=== PATIENT | male | born 1950 | race African-American/Black ===

== ENCOUNTER 2017-10-06 10:20 | Emergency (ER) | payer MEDICARE, MEDICAID ==
[2017-10-06] MEDS: SOD CHLORIDE 0.9% 1,000 ML IV (13:21)
[2017-10-06] MEDS: morphine 4 MG/ML VIAL IV (13:22)
[2017-10-06] MEDS: FAMOTIDINE 20 MG INJ IV (13:22)
[2017-10-06] MEDS: ONDANSETRON 4 MG INJ IV (13:22)
[2017-10-06 13:25] LABS: ADD MAN DIFF? NO
[2017-10-06 13:32] LABS: ABNORMAL IP MESSAGE 1; ADD UMIC YES; BASOPHILS % 0.6 % (0.0-2.0); EOSINOPHILS % 0.8 % (0.0-7.0); HEMATOCRIT 41.5 % (42.0-52.0); HEMOGLOBIN 12.9 g/dl (14.0-18.0); LYMPHOCYTES # 0.6 10^3/ul (0.8-2.9); MEAN CORPUSCULAR HEMOGLOBIN 28.5 pg (29.0-33.0); MEAN CORPUSCULAR HGB CONC 31.1 g/dl (32.0-37.0); MEAN CORPUSCULAR VOLUME 91.6 fl (82.0-101.0); MEAN PLATELET VOLUME 9.6 fl (7.4-10.4); MONOCYTE # 0.4 10^3/ul (0.3-0.9); MONOCYTES % 9.2 % (0.0-11.0); NEUTROPHIL # 3.7 10^3/ul (1.6-7.5); PLATELET COUNT 221 10^3/UL (140-415); POSITIVE DIFF @See below; RED BLOOD COUNT 4.53 10^6/ul (4.70-6.10); RED CELL DISTRIBUTION WIDTH 14.6 % (11.5-14.5); UR ASCORBIC ACID NEGATIVE (NEGATIVE); UR BACTERIA FEW /HPF (NONE SEEN); UR BILIRUBIN (Dip) NEGATIVE (NEGATIVE); UR BLOOD (Dip) 1+ mg/dL (NEGATIVE); UR CLARITY SLIGHTLY CLOUDY (CLEAR); UR COLOR YELLOW (YELLOW); UR GLUCOSE (Dip) NEGATIVE (NEGATIVE); UR KETONES (Dip) NEGATIVE (NEGATIVE); UR LEUKOCYTE ESTERASE (Dip) 2+ Leu/ul (NEGATIVE); UR NITRITE (Dip) POSITIVE (NEGATIVE); UR RBC 0 /HPF (0-5); UR SPECIFIC GRAVITY (Dip) 1.021 (1.003-1.030); UR TOTAL PROTEIN (Dip) 1+ mg/dl (NEGATIVE); UR UROBILINOGEN (Dip) NEGATIVE (NEGATIVE); UR WBC 72 /HPF (0-5)
[2017-10-06 13:32] LABS: WHITE BLOOD COUNT 4.8 10^3/ul (4.8-10.8)
[2017-10-06 13:47] LABS: ALANINE AMINOTRANSFERASE 233 IU/L (13-69); ALBUMIN 4.1 g/dl (3.3-4.9); ALBUMIN/GLOBULIN RATIO 1.13; ALKALINE PHOSPHATASE 95 IU/L (42-121); ANION GAP 18 (8-16); ASPARTATE AMINO TRANSFERASE 262 IU/L (15-46); BLOOD UREA NITROGEN 17 mg/dl (7-20); CALCIUM 9.2 mg/dl (8.4-10.2); CARBON DIOXIDE 26 mmol/L (21-31); CHLORIDE 105 mmol/L (97-110); GLUCOSE 98 mg/dl (70-220); LIPASE 191 U/L (23-300); POTASSIUM 3.9 mmol/L (3.5-5.1); SODIUM 145 mmol/L (135-144); TOTAL PROTEIN 7.7 g/dl (6.1-8.1)
[2017-10-06 14:08] LABS: TROPONIN-I < 0.012 ng/ml (0.00-0.12)
== END 2017-10-06 17:15 | disposition home or self-care (01) ==
LOC: E/R 10:20
DX: N39.0 Urinary tract infection, site not specified (principal); R00.1 Bradycardia, unspecified; R74.0 Nonspecific elevation of levels of transaminase and lactic acid dehydrogenase [LDH]; R51 Headache; J44.9 Chronic obstructive pulmonary disease, unspecified; I10 Essential (primary) hypertension; F14.10 Cocaine abuse, uncomplicated; Z87.891 Personal history of nicotine dependence
CPT/HCPCS: 36415; 70450; 74176; 80053; 81001; 83690; 84484; 85025; 87086; 93005; 96374; 96375; 99285-25

== ENCOUNTER 2017-10-18 00:40 | Emergency (ER) | payer SELFPAY, MEDICARE | END 2017-10-18 03:23 | disposition left against medical advice (07) | LOC: FTE 00:40 | DX: Z53.21 Procedure and treatment not carried out due to patient leaving prior to being seen by health care provider (principal) ==

== ENCOUNTER 2017-11-13 03:37 | Emergency (ER) | payer MEDICARE ==
[2017-11-13] MEDS: ALBUTEROL 0.083% (NEB) 2.5 MG/3 ML AMP INH (04:31)
== END 2017-11-13 05:05 | disposition home or self-care (01) ==
LOC: E/R 03:37
DX: J45.901 Unspecified asthma with (acute) exacerbation (principal); J44.9 Chronic obstructive pulmonary disease, unspecified; F17.210 Nicotine dependence, cigarettes, uncomplicated
CPT/HCPCS: 94664; 99283-25

== ENCOUNTER 2017-11-26 14:18 | Emergency (ER) | payer MEDICARE ==
[2017-11-26] MEDS: IPRATROPIUM (NEB) 0.5 MG/2.5 ML AMP HHN (15:23)
[2017-11-26] MEDS: LEVALBUTEROL (NEB) 1.25 MG/0.5 ML AMP HHN (15:23)
== END 2017-11-26 16:02 | disposition home or self-care (01) ==
LOC: FTE 14:18
DX: J45.901 Unspecified asthma with (acute) exacerbation (principal); J44.9 Chronic obstructive pulmonary disease, unspecified; Z87.891 Personal history of nicotine dependence
CPT/HCPCS: 71045; 94664; 99283-25

== ENCOUNTER 2017-12-03 01:07 | Emergency (ER) | payer MEDICARE ==
[2017-12-03 01:20] LABS: WHITE BLOOD COUNT 8.5 10^3/ul (4.8-10.8)
[2017-12-03 01:20] LABS: HEMATOCRIT 28.3 % (42.0-52.0); HEMOGLOBIN 8.7 g/dl (14.0-18.0); MEAN CORPUSCULAR HEMOGLOBIN 27.6 pg (29.0-33.0); MEAN CORPUSCULAR HGB CONC 30.7 g/dl (32.0-37.0); MEAN CORPUSCULAR VOLUME 89.8 fl (82.0-101.0); NUCLEATED RED BLOOD CELLS% 0.4 /100WBC (0.0-0.0); PLATELET COUNT 167 10^3/UL (140-415); POSITIVE DIFF @See below; RED BLOOD COUNT 3.15 10^6/ul (4.70-6.10); RED CELL DISTRIBUTION WIDTH 18.5 % (11.5-14.5)
[2017-12-03] MEDS: IPRATROPIUM (NEB) 0.5 MG/2.5 ML AMP INH (01:26)
[2017-12-03] MEDS: ALBUTEROL 0.5% (NEB) 2.5 MG/0.5 ML AMP INH (01:26)
[2017-12-03 01:30] LABS: ADD MAN DIFF? YES
[2017-12-03 01:41] LABS: ALANINE AMINOTRANSFERASE 39 IU/L (13-69); ALBUMIN 3.7 g/dl (3.3-4.9); ALBUMIN/GLOBULIN RATIO 1.37; ALKALINE PHOSPHATASE 85 IU/L (42-121); ANION GAP 12 (8-16); ASPARTATE AMINO TRANSFERASE 37 IU/L (15-46); BILIRUBIN,INDIRECT 0.3 mg/dl (0-1.1); BILIRUBIN,TOTAL 0.3 mg/dl (0.2-1.3); BLOOD UREA NITROGEN 12 mg/dl (7-20); CALCIUM 8.8 mg/dl (8.4-10.2); CARBON DIOXIDE 32 mmol/L (21-31); CHLORIDE 104 mmol/L (97-110); CREATININE 0.97 mg/dl (0.61-1.24); GLUCOSE 97 mg/dl (70-220); LIPASE 216 U/L (23-300); POTASSIUM 3.9 mmol/L (3.5-5.1); SODIUM 144 mmol/L (135-144); TOTAL PROTEIN 6.4 g/dl (6.1-8.1)
[2017-12-03] MEDS: METHYLPREDNISOLONE 125 MG INJ IV (01:42)
[2017-12-03 01:52] LABS: B-TYPE NATRIURETIC PEPTIDE 170 PG/ML (0-125)
[2017-12-03 01:59] LABS: TROPONIN-I < 0.012 ng/ml (0.000-0.120)
[2017-12-03] MEDS ORDERED: NITROGLYCERIN (SL) 0.4 MG TAB SL (02:00)
[2017-12-03] MEDS ORDERED: ACETAMINOPHEN 325 MG TAB PO (02:00)
[2017-12-03] MEDS ORDERED: DOCUSATE SODIUM 100 MG CAP PO (02:00)
[2017-12-03] MEDS ORDERED: NACL 0.9% 3 ML SYG IV (02:00)
[2017-12-03] MEDS ORDERED: ONDANSETRON 4 MG INJ IV (02:00)
[2017-12-03] MEDS ORDERED: BISACODYL (EC) 5 MG TAB PO (02:00)
[2017-12-03] MEDS ORDERED: ALBUTEROL 0.083% (NEB) 2.5 MG/3 ML AMP HHN (02:00)
[2017-12-03 02:20] LABS: ANISOCYTOSIS 2+ (0-0); BASOPHILS % (M) 1 % (0-2); EOSINOPHILS % (M) 5 % (0-7); ERYTHROBLAST% (NRBC) (M) 4 % (0-0); GIANT THROMBO% (M) 1 % (0-0); HYPOCHROMASIA 2+ (0-0); LYMPHOCYTES #M 2.6 10^3/ul (0.8-2.9); LYMPHOCYTES % (M) 31 % (15-51); MONOCYTE #M 0.5 10^3/ul (0.3-0.9); MONOCYTES % (M) 7 % (0-11); PLATELET ESTIMATE NORMAL; POLYCHROMASIA 3+ (0-0); SEGMENTED NEUTROPHILS (M) % 56 % (39-77); SMUDGE%M 7 % (0-0)
[2017-12-03] MEDS ORDERED: ALBUTEROL/IPRATROPIUM (NEB) 3 ML AMP HHN (05:00)
[2017-12-03] MEDS ORDERED: PANTOPRAZOLE (EC) 40 MG TAB PO (06:00)
[2017-12-03] MEDS ORDERED: predniSONE 20 MG TAB PO (09:00)
== END 2017-12-03 03:55 | disposition left against medical advice (07) ==
LOC: E/R 01:07
DX: J45.41 Moderate persistent asthma with (acute) exacerbation (principal); D64.9 Anemia, unspecified; R60.0 Localized edema; J44.9 Chronic obstructive pulmonary disease, unspecified; F17.210 Nicotine dependence, cigarettes, uncomplicated; I10 Essential (primary) hypertension
CPT/HCPCS: 36415; 71045; 80053; 83690; 83880; 84484; 85025; 93005; 94644; 96374; 99285-25

== ENCOUNTER 2018-03-12 01:05 | Inpatient (IN) | payer MEDICARE ==
[2018-03-12] MEDS ORDERED: LORAZEPAM 2 MG INJ (01:12)
[2018-03-12 01:14] LABS: ADD MAN DIFF? NO
[2018-03-12 01:16] LABS: BASOPHILS % 0.4 % (0.0-2.0); EOSINOPHILS # 0.5 10^3/ul (0.0-0.5); HEMOGLOBIN 11.4 g/dl (14.0-18.0); LYMPHOCYTES # 3.7 10^3/ul (0.8-2.9); MEAN CORPUSCULAR HEMOGLOBIN 23.9 pg (29.0-33.0); MEAN CORPUSCULAR HGB CONC 29.2 g/dl (32.0-37.0); MEAN CORPUSCULAR VOLUME 81.8 fl (82.0-101.0); MEAN PLATELET VOLUME 8.7 fl (7.4-10.4); MONOCYTE # 1.1 10^3/ul (0.3-0.9); MONOCYTES % 11.9 % (0.0-11.0); NEUTROPHIL # 4.1 10^3/ul (1.6-7.5); NEUTROPHILS % 43.5 % (39.0-77.0); PLATELET COUNT 244 10^3/UL (140-415); RED BLOOD COUNT 4.77 10^6/ul (4.70-6.10); RED CELL DISTRIBUTION WIDTH 20.1 % (11.5-14.5)
[2018-03-12 01:16] LABS: WHITE BLOOD COUNT 9.5 10^3/ul (4.8-10.8)
[2018-03-12] MEDS: ALBUTEROL 0.5% (NEB) 2.5 MG/0.5 ML AMP INH (01:31)
[2018-03-12] MEDS: IPRATROPIUM (NEB) 0.5 MG/2.5 ML AMP INH (01:31)
[2018-03-12 01:33] LABS: ALANINE AMINOTRANSFERASE 20 IU/L (13-69); ALBUMIN 3.8 g/dl (3.3-4.9); ALKALINE PHOSPHATASE 90 IU/L (42-121); ANION GAP 13 (8-16); ASPARTATE AMINO TRANSFERASE 40 IU/L (15-46); BILIRUBIN,INDIRECT 0.7 mg/dl (0-1.1); BILIRUBIN,TOTAL 0.7 mg/dl (0.2-1.3); BLOOD UREA NITROGEN 8 mg/dl (7-20); CALCIUM 9.1 mg/dl (8.4-10.2); CARBON DIOXIDE 29 mmol/L (21-31); CHLORIDE 106 mmol/L (97-110); CREATININE 1.04 mg/dl (0.61-1.24); GLUCOSE 120 mg/dl (70-220); POTASSIUM 4.1 mmol/L (3.5-5.1); SODIUM 144 mmol/L (135-144); TOTAL PROTEIN 7.6 g/dl (6.1-8.1)
[2018-03-12 01:34] LABS: LACTIC ACID 1.5 mmol/L (0.5-2.0)
[2018-03-12] MEDS: SOD CHLORIDE 0.9% 500 ML IV (01:36)
[2018-03-12] MEDS: LORAZEPAM 2 MG INJ IV (01:36)
[2018-03-12] MEDS: METHYLPREDNISOLONE 125 MG INJ IV (01:36)
[2018-03-12 01:39] LABS: INR 0.89; PROTIME 12.1 Sec (11.9-14.9); PT RATIO 0.9
[2018-03-12 01:40] LABS: PARTIAL THROMBOPLASTIN TIME 33.2 Sec (23.0-35.0)
[2018-03-12 01:45] LABS: B-TYPE NATRIURETIC PEPTIDE 84 PG/ML (0-125); TROPONIN-I < 0.012 ng/ml (0.000-0.120)
[2018-03-12 02:09] LABS: AADO2 Arterial 264.5 mmHg (7.0-24.0); Allen Test ACCEPTAB; Arterial Base Excess -2.4 mmol/L (-3.0-3); Arterial Blood Gas Oxygen Sat 95.5 mmHG (95.0-98.0); Arterial COHb 6.9 % (0.0-3.0); Arterial Fraction of Oxyhgb 88.6 % (93.0-99.0); Arterial HCO3 26.6 mmol/L (22.0-26.0); Arterial MetHb 0.3 % (0.0-1.5); Arterial Total Hemglobin 11.8 g/dl (12.0-18.0); Arterial pCO2 68.3 mmhg (35-45); Blood Gas IEPAP 15/5; MODE MASK - BIPAP; Site Left Radial
[2018-03-12 04:24] LABS: Allen Test ACCEPTAB; Arterial Base Excess -1.8 mmol/L (-3.0-3); Arterial Blood Gas Oxygen Sat 96.6 mmHG (95.0-98.0); Arterial COHb 5.1 % (0.0-3.0); Arterial Fraction of Oxyhgb 91.5 % (93.0-99.0); Arterial HCO3 25.3 mmol/L (22.0-26.0); Arterial MetHb 0.2 % (0.0-1.5); Arterial Total Hemglobin 11.5 g/dl (12.0-18.0); Arterial pCO2 53.6 mmhg (35-45); Blood Gas PS 12; MODE MASK - BIPAP; Site Right Radial
[2018-03-12] MEDS ORDERED: NACL 0.9% 3 ML SYG IV (06:00)
[2018-03-12] MEDS ORDERED: ALBUTEROL/IPRATROPIUM (NEB) 3 ML AMP HHN (06:00)
[2018-03-12] MEDS ORDERED: ONDANSETRON 4 MG INJ IV (06:00)
[2018-03-12] MEDS ORDERED: ACETAMINOPHEN 325 MG TAB PO (06:00)
[2018-03-12] MEDS ORDERED: DIPHENHYDRAMINE 25 MG CAP PO (06:00)
[2018-03-12 06:05] LABS: ABNORMAL IP MESSAGE 1; HEMATOCRIT 35.5 % (42.0-52.0); HEMOGLOBIN 10.5 g/dl (14.0-18.0); MEAN CORPUSCULAR HGB CONC 29.6 g/dl (32.0-37.0); MEAN CORPUSCULAR VOLUME 81.1 fl (82.0-101.0); MEAN PLATELET VOLUME 9.2 fl (7.4-10.4); PLATELET COUNT 212 10^3/UL (140-415); POSITIVE DIFF @See below; RED BLOOD COUNT 4.38 10^6/ul (4.70-6.10); RED CELL DISTRIBUTION WIDTH 20.1 % (11.5-14.5)
[2018-03-12 06:05] LABS: WHITE BLOOD COUNT 11.1 10^3/ul (4.8-10.8)
[2018-03-12 06:20] LABS: ALANINE AMINOTRANSFERASE 17 IU/L (13-69); ALKALINE PHOSPHATASE 77 IU/L (42-121); ANION GAP 8 (8-16); ASPARTATE AMINO TRANSFERASE 35 IU/L (15-46); BILIRUBIN,INDIRECT 0.6 mg/dl (0-1.1); BILIRUBIN,TOTAL 0.6 mg/dl (0.2-1.3); BLOOD UREA NITROGEN 7 mg/dl (7-20); CALCIUM 8.7 mg/dl (8.4-10.2); CARBON DIOXIDE 29 mmol/L (21-31); CHLORIDE 111 mmol/L (97-110); CREATININE 0.93 mg/dl (0.61-1.24); GLUCOSE 118 mg/dl (70-220); SODIUM 144 mmol/L (135-144); TOTAL PROTEIN 6.8 g/dl (6.1-8.1)
[2018-03-12 06:22] LABS: ADD MAN DIFF? YES
[2018-03-12 06:28] LABS: LACTIC ACID 1.6 mmol/L (0.5-2.0)
[2018-03-12 06:31] LABS: ALBUMIN 3.8 g/dl (3.3-4.9); ALBUMIN/GLOBULIN RATIO 1.26
[2018-03-12] MEDS ORDERED: METHYLPREDNISOLONE 125 MG INJ IV (09:00)
[2018-03-12 09:11] LABS: ANISOCYTOSIS 2+ (0-0); ERYTHROBLAST% (NRBC) (M) 1 % (0-0); GIANT THROMBO% (M) 1 % (0-0); HYPOCHROMASIA 1+ (0-0); LYMPHOCYTES #M 0.3 10^3/ul (0.8-2.9); LYMPHOCYTES % (M) 3 % (15-51); MICROCYTOSIS 1+ (0-0); MONOCYTE #M 0.1 10^3/ul (0.3-0.9); MONOCYTES % (M) 1 % (0-11); PLATELET ESTIMATE NORMAL; POIKILOCYTOSIS 1+ (0-0); POLYCHROMASIA 1+ (0-0); SEGMENTED NEUTROPHILS (M) % 96 % (39-77); SMUDGE%M 9 % (0-0); TARGET CELLS 1+ (0-0)
[2018-03-12] MEDS: HEPARIN 5,000 UNIT/0.5 ML VIAL SC ×2 (11:28→20:47)
[2018-03-12] MEDS: METHYLPREDNISOLONE 40 MG INJ IV ×2 (17:23→20:39)
[2018-03-12] MEDS: AMLODIPINE 10 MG TAB PO (17:24)
[2018-03-12] MEDS: OLANZAPINE 5 MG TAB PO (17:24)
[2018-03-12] MEDS: CHOLECALCIFEROL 1,000 UNIT TAB PO (17:24)
== END 2018-03-12 21:10 | disposition left against medical advice (07) | DRG 190 ==
LOC: E/R 01:05 → 6WM 02:06
DX: J44.1 Chronic obstructive pulmonary disease with (acute) exacerbation (principal); J96.02 Acute respiratory failure with hypercapnia; J96.01 Acute respiratory failure with hypoxia; F20.0 Paranoid schizophrenia; Z72.0 Tobacco use; F12.90 Cannabis use, unspecified, uncomplicated; F15.90 Other stimulant use, unspecified, uncomplicated; I10 Essential (primary) hypertension
CPT/HCPCS: 36415; 36600; 71045; 80053; 82803; 83605; 83880; 84484; 85025; 85610; 85730; 93005; 94644; 94660; 96374; 99291-25

== ENCOUNTER 2018-03-14 01:44 | Emergency (ER) | payer MEDICARE ==
[2018-03-14] MEDS: IPRATROPIUM (NEB) 0.5 MG/2.5 ML AMP HHN (02:22)
[2018-03-14] MEDS: LEVALBUTEROL (NEB) 1.25 MG/0.5 ML AMP HHN (02:22)
[2018-03-14] MEDS: predniSONE 20 MG TAB PO (02:54)
== END 2018-03-14 03:29 | disposition left against medical advice (07) ==
LOC: E/R 01:44
DX: R06.02 Shortness of breath (principal)
CPT/HCPCS: 94644; 99283-25

== ENCOUNTER 2018-04-20 02:58 | Inpatient (IN) | payer MEDICARE ==
[2018-04-20] MEDS: LEVALBUTEROL (NEB) 1.25 MG/0.5 ML AMP INH (03:20)
[2018-04-20] MEDS: IPRATROPIUM (NEB) 0.5 MG/2.5 ML AMP INH (03:20)
[2018-04-20 04:17] LABS: ADD MAN DIFF? NO
[2018-04-20 04:18] LABS: WHITE BLOOD COUNT 5.8 10^3/ul (4.8-10.8)
[2018-04-20 04:19] LABS: BASOPHILS % 0.3 % (0.0-2.0); EOSINOPHILS # 0.3 10^3/ul (0.0-0.5); EOSINOPHILS % 5.5 % (0.0-7.0); HEMATOCRIT 35.3 % (42.0-52.0); HEMOGLOBIN 10.4 g/dl (14.0-18.0); LYMPHOCYTES # 1.9 10^3/ul (0.8-2.9); MEAN CORPUSCULAR HEMOGLOBIN 23.9 pg (29.0-33.0); MEAN CORPUSCULAR HGB CONC 29.5 g/dl (32.0-37.0); MEAN CORPUSCULAR VOLUME 81.1 fl (82.0-101.0); MEAN PLATELET VOLUME 9.1 fl (7.4-10.4); MONOCYTE # 0.7 10^3/ul (0.3-0.9); MONOCYTES % 11.2 % (0.0-11.0); NEUTROPHILS % 50.7 % (39.0-77.0); PLATELET COUNT 209 10^3/UL (140-415); RED BLOOD COUNT 4.35 10^6/ul (4.70-6.10); RED CELL DISTRIBUTION WIDTH 19.1 % (11.5-14.5)
[2018-04-20 04:35] LABS: ALANINE AMINOTRANSFERASE 28 IU/L (13-69); ALBUMIN 3.8 g/dl (3.3-4.9); ALBUMIN/GLOBULIN RATIO 1.26; ALKALINE PHOSPHATASE 68 IU/L (42-121); ANION GAP 4 (5-13); ASPARTATE AMINO TRANSFERASE 32 IU/L (15-46); BILIRUBIN,INDIRECT 0.8 mg/dl (0-1.1); BILIRUBIN,TOTAL 0.8 mg/dl (0.2-1.3); BLOOD UREA NITROGEN 14 mg/dl (7-20); CALCIUM 8.9 mg/dl (8.4-10.2); CARBON DIOXIDE 31 mmol/L (21-31); CHLORIDE 109 mmol/L (97-110); CREATININE 0.94 mg/dl (0.61-1.24); Estimated GFR > 60 mL/min (>60); GLUCOSE 90 mg/dl (70-220); POTASSIUM 4.1 mmol/L (3.5-5.1); SODIUM 144 mmol/L (135-144); TOTAL PROTEIN 6.8 g/dl (6.1-8.1)
[2018-04-20] MEDS: SOD CHLORIDE 0.9% IV (04:36)
[2018-04-20] MEDS: CEFEPIME 1GM/50 ML (PMX) 50 ML IVPB (04:36)
[2018-04-20] MEDS: METHYLPREDNISOLONE 125 MG INJ IV (04:36)
[2018-04-20] MEDS: VANCOMYCIN 1 GM (PMX) 250 ML IVPB (04:36)
[2018-04-20] MEDS: LEVOFLOXACIN 750MG/D5W (PMX) 150 ML IVPB (04:37)
[2018-04-20 04:38] LABS: INR 0.89; PROTIME 12.1 Sec (11.9-14.9); PT RATIO 0.9
[2018-04-20 04:39] LABS: PARTIAL THROMBOPLASTIN TIME 35.9 Sec (23.0-35.0)
[2018-04-20 04:47] LABS: TROPONIN-I < 0.012 ng/ml (0.000-0.120)
[2018-04-20] MEDS ORDERED: ACETAMINOPHEN 325 MG TAB PO (06:30)
[2018-04-20] MEDS ORDERED: DOCUSATE SODIUM 100 MG CAP PO (06:30)
[2018-04-20] MEDS ORDERED: ONDANSETRON 4 MG INJ IV (06:30)
[2018-04-20] MEDS ORDERED: BISACODYL (EC) 5 MG TAB PO (06:30)
[2018-04-20] MEDS ORDERED: NACL 0.9% 3 ML SYG IV (06:30)
[2018-04-20] MEDS: ALBUTEROL/IPRATROPIUM (NEB) 3 ML AMP HHN ×3 (06:30→13:00)
[2018-04-20] MEDS ORDERED: HEPARIN 5,000 UNIT/0.5 ML VIAL ×2 (06:31→12:59)
[2018-04-20] MEDS: HEPARIN 5,000 UNIT/1 ML VIAL SC ×2 (06:33→13:06)
[2018-04-20] MEDS ORDERED: NON-FORMULARY/PATIENT OWN MED (Albuterol Sulfate (Proair Respiclick) 2 PUFFS) INHALATION (07:00)
[2018-04-20] MEDS ORDERED: ALBUTEROL 0.083% (NEB) 2.5 MG/3 ML AMP INH (08:00)
[2018-04-20] MEDS: predniSONE 20 MG TAB PO (08:04)
[2018-04-20] MEDS: OLANZAPINE 5 MG TAB PO (08:04)
[2018-04-20] MEDS: AMLODIPINE 10 MG TAB PO (08:05)
[2018-04-20 08:22] LABS: LACTIC ACID 1.3 mmol/L (0.5-2.0)
[2018-04-20 08:25] LABS: ADD UMIC YES; UR ASCORBIC ACID NEGATIVE (NEGATIVE); UR BILIRUBIN (Dip) NEGATIVE (NEGATIVE); UR BLOOD (Dip) NEGATIVE (NEGATIVE); UR CLARITY CLEAR (CLEAR); UR COLOR STRAW (YELLOW); UR GLUCOSE (Dip) NEGATIVE (NEGATIVE); UR KETONES (Dip) NEGATIVE (NEGATIVE); UR LEUKOCYTE ESTERASE (Dip) TRACE Leu/ul (NEGATIVE); UR NITRITE (Dip) NEGATIVE (NEGATIVE); UR RBC 1 /HPF (0-5); UR SPECIFIC GRAVITY (Dip) 1.009 (1.003-1.030); UR TOTAL PROTEIN (Dip) NEGATIVE (NEGATIVE); UR UROBILINOGEN (Dip) NEGATIVE (NEGATIVE); UR WBC 7 /HPF (0-5)
[2018-04-20 09:26] LABS: AMPHETAMINE/METHAMPHETAMINE Negative (NEGATIVE); BARBITURATES Negative (NEGATIVE); BENZODIAZEPINES Negative (NEGATIVE); CANNABINOIDS Positive (NEGATIVE); COCAINE Positive (NEGATIVE); OPIATES Negative (NEGATIVE)
[2018-04-20 12:16] LABS: FERRITIN 10.8 ng/ml (11.1-264.0)
[2018-04-20 12:26] LABS: IRON 23 ug/dl (35-150)
[2018-04-20 12:35] LABS: % IRON SATURATION 5 % SAT (22-52); TOTAL IRON BINDING CAPACITY 451 ug/dl (241-421)
[2018-04-20] MEDS: hydrALAzine 20 MG INJ IV (12:57)
[2018-04-21] MEDS ORDERED: PANTOPRAZOLE (EC) 40 MG TAB PO (06:00)
[2018-04-22] MEDS ORDERED: LEVOFLOXACIN 750 MG TABLET PO ×2 (06:00)
== END 2018-04-20 15:03 | disposition left against medical advice (07) | DRG 190 ==
LOC: E/R 02:58 → TEL 04:47
DX: J44.1 Chronic obstructive pulmonary disease with (acute) exacerbation (principal); J96.00 Acute respiratory failure, unspecified whether with hypoxia or hypercapnia; D50.9 Iron deficiency anemia, unspecified; F32.9 Major depressive disorder, single episode, unspecified; F20.9 Schizophrenia, unspecified; F17.200 Nicotine dependence, unspecified, uncomplicated; I10 Essential (primary) hypertension; R10.9 Unspecified abdominal pain
CPT/HCPCS: 36415; 71045; 74176; 80053; 80307; 81001; 82728; 83540; 83605; 84145; 84484; 85025; 85610; 85730; 87040; 87081; 87086; 93005; 94640; 94644; 96374; 96375; 99291-25